=== PATIENT | male | born 1955 | race Caucasian/White ===

== ENCOUNTER 2019-03-19 14:31 | Inpatient (IN) | payer OTHER ==
[~2019-03-19] VITALS: Ht 190.5 cm; Wt 109.6 kg
[2019-03-19] MEDS ORDERED: METF500 PO (14:58)
[2019-03-19 17:14] LABS: Alanine Aminotransfer (ALT/SGP 39 U/L (12-78); Albumin, Blood 3.6 g/dL (3.4-5.0); Alk Phos 70 U/L (50-136); Anion Gap 6 mmol/L (6-16); Aspartate Aminotrans (AST/SGOT 27 U/L (12-37); Bilirubin, Total 0.4 mg/dL (0.1-1.0); Blood Urea Nitrogen 17 mg/dL (8-24); Bun/Creatinine Ratio 19.4 (12.0-20.0); CO2, Blood 25 mmol/L (21-32); Calcium, Blood 8.5 mg/dL (8.5-10.1); Chloride, Blood 106 mmol/L (98-108); Creatinine, Blood 0.88 mg/dL (0.60-1.20); Globulin, Blood 3.5 g/dL (2.2-4.0); Glomerular Filtration Rate >60 (60-); Glucose, Blood 133 mg/dL (70-99); Potassium, Blood 4.1 mmol/L (3.5-5.5); Sodium, Blood 137 mmol/L (136-145); Total Protein, Blood 7.1 g/dL (6.4-8.2); Troponin I 0.209 ng/mL (0.000-0.040)
[2019-03-19 17:20] LABS: BASOPHILS ABSOLUTE AUTO 0.07 K/mm3 (0.00-0.23); BASOPHILS PERCENT AUTO 1 % (0-2); EOSINOPHILS ABSOLUTE AUTO 0.33 K/mm3 (0.00-0.68); EOSINOPHILS PERCENT AUTO 3 % (0-6); Hematocrit 45.1 % (37.0-53.0); Hemoglobin 15.4 g/dL (13.5-17.5); IMMATURE GRAN ABSOLUTE AUTO 0.07 K/mm3 (0.00-0.10); IMMATURE GRAN PERCENT AUTO 1 % (0-1); LYMPHOCYTES PERCENT AUTO 34 % (21-46); MONOCYTES ABSOLUTE AUTO 0.75 K/mm3 (0.16-1.47); MONOCYTES PERCENT AUTO 6 % (4-13); Mean Corpuscular HGB 30.7 pg (26.0-34.0); Mean Corpuscular HGB Conc 34.1 g/dL (31.5-36.5); Mean Corpuscular Volume 90 fL (80-100); Mean Platelet Volume 10.6 fL (9.1-12.4); NEUTROPHILS ABSOLUTE AUTO 7.46 K/mm3 (1.96-9.15); NEUTROPHILS PERCENT AUTO 57 % (41-73); Platelet Count 209 K/mm3 (150-400); RDW Coefficient Variation 11.9 % (11.7-14.2); Red Blood Cell Count 5.01 M/mm3 (4.30-5.90); White Blood Cell Count 13.18 K/mm3 (4.00-11.30)
[2019-03-19] MEDS ORDERED: Amaryl1 MG PO (17:25)
--- NOTE | 2019-03-20 04:53 | NUR ---
SHIFT SUMMARY PT ARRIVED TO UNIT AT APPROXIMATELY 2009. PT ALERT AND ORIENTED. VS STABLE. HR NSR. BP STABLE. PT DENIES ANY CP/PRESSURE. HEPARIN GTT INFUSING PER ORDERS. PT NPO SINCE MIDNIGHT. PT AWAITING CARDIOLOGY CONSULT. PT INDEPENDENT IN THE ROOM. WILL CONTINUE TO MONITOR AND REPORT TO ONCOMING RN. CALL LIGHT IN [facility].
[2019-03-20 07:53] LABS: BASOPHILS PERCENT AUTO 1 % (0-2); EOSINOPHILS ABSOLUTE AUTO 0.59 K/mm3 (0.00-0.68); EOSINOPHILS PERCENT AUTO 5 % (0-6); Hematocrit 43.1 % (37.0-53.0); Hemoglobin 14.8 g/dL (13.5-17.5); IMMATURE GRAN ABSOLUTE AUTO 0.05 K/mm3 (0.00-0.10); IMMATURE GRAN PERCENT AUTO 0 % (0-1); LYMPHOCYTES ABSOLUTE AUTO 5.94 K/mm3 (0.84-5.20); LYMPHOCYTES PERCENT AUTO 52 % (21-46); MONOCYTES ABSOLUTE AUTO 0.86 K/mm3 (0.16-1.47); MONOCYTES PERCENT AUTO 8 % (4-13); Mean Corpuscular HGB 31.2 pg (26.0-34.0); Mean Corpuscular HGB Conc 34.3 g/dL (31.5-36.5); Mean Corpuscular Volume 91 fL (80-100); Mean Platelet Volume 10.7 fL (9.1-12.4); NEUTROPHILS ABSOLUTE AUTO 3.86 K/mm3 (1.96-9.15); NEUTROPHILS PERCENT AUTO 34 % (41-73); Platelet Count 199 K/mm3 (150-400); RDW Coefficient Variation 12.1 % (11.7-14.2); Red Blood Cell Count 4.75 M/mm3 (4.30-5.90)
[2019-03-20 08:18] LABS: Anion Gap 6 mmol/L (6-16); Blood Urea Nitrogen 17 mg/dL (8-24); Bun/Creatinine Ratio 22.7 (12.0-20.0); CHOL/HDL RATIO 4.8; CO2, Blood 24 mmol/L (21-32); Calcium, Blood 8.7 mg/dL (8.5-10.1); Chloride, Blood 107 mmol/L (98-108); Cholesterol 212 mg/dL (50-200); Creatinine, Blood 0.75 mg/dL (0.60-1.20); Glomerular Filtration Rate >60 (60-); Glucose, Blood 174 mg/dL (70-99); HDL Cholesterol 44 mg/dL (>39); LDL/HDL RATIO 2.6; Low Density Lipoprotein Chol 115 mg/dL (0-110); Sodium, Blood 137 mmol/L (136-145); Triglycerides 264 mg/dL (30-160); Very Low Density Lipoprot Chol 52 mg/dL (6-32)
--- NOTE | 2019-03-20 09:12 | NUR ---
RECEIVED PERMISSION FROM THE PATIENT TO PROVIDE CARE.
--- NOTE | 2019-03-20 10:00 | NUR ---
SPOKE WITH PATIENTS DAUGHTER ON THE PHONE. UPDATED ON PATIENTS STATUS AND PLANS FOR CARDIAC CATHETERIZATION.
--- NOTE | 2019-03-20 12:03 | NUR ---
PATIENT RESTLESS, REQUESTED TO GO FOR A WALK AROUND THE UNIT. PT SHOWN AROUND THE UNIT AND REMINDED OF NPO STATUS. GAIT WAS STEADY. NO COMPLAINTS OF SHOB OR CP UPON MOVEMENT. TELEMETRY MONITORED HE WALKED, PULSE ELEVATED TO THE MID 60'S.
--- NOTE | 2019-03-20 12:24 | NUR ---
PATIENT TOLERATED WALKING WITH NO COMLAINTS.
--- NOTE | 2019-03-20 14:09 | NUR ---
Spiritual care visit conducted. Patient is lying in bed and alert. Patient's spouse, Shannon, is bedside. Patient openly shares about his medical issues and his frustration with the long wait for surgery. Patient tells me his life story which includes his family history, his career history, his spiritual journey and his past struggles with addiction. 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 I listen empathically, reinforce helpful attitudes and practices, normalize patient's experience and provide companionship, pastoral children counselor and presurgical prayer. Patient responds well and show signs of reduced stress. I will continue to remain available to patient and family.
--- NOTE | 2019-03-20 15:59 | NUR ---
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
--- NOTE | 2019-03-20 18:05 | NUR ---
This student nurse has permission to access patient information.
--- NOTE | 2019-03-20 18:08 | NUR ---
pt returned to room after have an angio, he recieved one stent to mid lad, he is awake a/ox3, feels good, tr band site is clear, no numbness or tingling to fingers, v.s. stable, glucose 129, no insulin coverage needed, call light in reach, at bedside, eating dinner.
--- NOTE | 2019-03-20 18:57 | NUR ---
No signs of bleeding, bruising, or swelling surrounding the TR band. Patient denies associated pain or loss of sensation. Vitals signs are stable.
--- NOTE | 2019-03-20 20:24 | NUR ---
ASSUMED CARE ASSUMED CARE OF PT AT 1900, PATIENT AWAKE AND ALERT LYING IN BED IN NO SIGNS OF DISTRESS, TR BAND IN PLACE RIGHT WRIST. SURG SITE IS INTACT, MILD SWELLING AT EDGES OF TR BAND TO WHICH PATIENT REPORTS TENDER WHEN TOUCHED, BUT NO REDNESS. APPEARS SWELLING/TENDERNESS MAY BE CAUSED BY THE TIGHT TR BAND. REMOVED 1 CC AIR FROM TR BAND, PATIENT STATES RELIEF. WILL CONTINUE TO ASSESS AND MONITOR, AND WILL CONTINUE REMOVING AIR FROM TR BAND PER UNIT PROTOCOL.
--- NOTE | 2019-03-20 22:50 | NUR ---
AIR REMOVED FROM TR BAND REMOVED THE FINAL 2 ML OF AIR FROM PATIENT'S TR BAND. SITE CONTINUES IT HAS AT EACH ASSESSMENT: MILD SWELLING AT EDGES OF TR BAND, NO NEW REDNESS, NO PAIN OUT OF PROPORTION. CAP REFILL < 3 SEC WITH FULL SENSATION PER PATIENT TO ALL FINGERS RIGHT HAND. 02 SATURATION ABOVE 95% PERIPHERAL TO SURG SITE THROUGHOUT ALL ASSESSMENTS. WILL CONTINUE TO MONITOR
--- NOTE | 2019-03-20 23:50 | NUR ---
TR BAND REMOVED. ASSESSMENT CONTINUES WNL. NO NEW PAIN, NO NEW REDNESS. CAP REFILL AND SENSATION TO PERIPHERY REMAIN INTACT. SATURATION ABOVE 95%. PATIENT REPORTS FINGER MOVEMENT IS NORMAL. SITE COVERED WITH CLEAR TEGADERM, ARM BAND IN PLACE. PATIENT ADVISED THAT ARM BAND AND MOVEMENT PRECAUTIONS WILL REMAIN IN PLACE THROUGH DISCHARGE.
--- NOTE | 2019-03-21 07:00 | NUR ---
SHIFT SUMMARY ALL VITAL SIGNS STABLE T/O SHIFT. RADIAL ACCESS SITE TO RIGHT WRIST INTACT AND COVERED WITH CLEAR DRESSING. NO NEW BLEEDING, REDNESS, SWELLING, PAIN. SENSATION AND PERFUSION INTACT TO PERIPHERY. PATIENT HAS BEEN COMPLIANT WITH ARM BOARD WHICH IS STILL IN PLACE; PATIENT ADVISED IN ITS USE. PATIENT IS LOOKING FORWARD TO BEING ABLE TO GO HOME. BED IS LOCKED AND LOW, CALL LIGHT W/IN REACH.
--- NOTE | 2019-03-21 07:30 | NUR ---
PT SITTING UP IN BED, AMBULATING IN ROOM AD DIANE, DENIES ANY COMPLAINTS OF PAIN, A/OX3, PLEASANT AND COOPERATIVE WITH CARE, FOLLOWS COMMANDS WELL, LUNGS ARE CLEAR T/O, R/A, RESP EVEN AND UNLABORED, NO COUGH NOTED, HRR, TELE IN PLACE RUNNING SB IN THE HIGH 50'S, VERY TRACE EDEMA NOTED, PPP+2, CAP REFILL <3SEC, VS STABLE, AFEBRILE, IV SITES ARE CLEAR AND PATENT, BTX4, ABD ROUND SOFT NONTENDER, VOIDS WITHOUT DIFF, SKIN C/W/D, MAEW, TR BAND SITE WITH ARM BOARD IN PLACE, WILL BE GOING HOME TODAY, EDUCATION ON TR BAND CARE GIVEN, DIETARY CONSULT PLACED FOR ADA AND CARDIAC DIET. CALL LIGHT IN REACH.
[2019-03-21 08:47] LABS: Hematocrit 43.3 % (37.0-53.0); Hemoglobin 14.6 g/dL (13.5-17.5); Mean Corpuscular HGB 30.6 pg (26.0-34.0); Mean Corpuscular HGB Conc 33.7 g/dL (31.5-36.5); Mean Corpuscular Volume 91 fL (80-100); Mean Platelet Volume 10.6 fL (9.1-12.4); Platelet Count 199 K/mm3 (150-400); RDW Standard Deviation 39.8 fL (35.1-46.3); Red Blood Cell Count 4.77 M/mm3 (4.30-5.90); White Blood Cell Count 9.85 K/mm3 (4.00-11.30)
[2019-03-21 09:06] LABS: Albumin, Blood 3.4 g/dL (3.4-5.0); Anion Gap 8 mmol/L (6-16); Blood Urea Nitrogen 17 mg/dL (8-24); Bun/Creatinine Ratio 20.5 (12.0-20.0); CO2, Blood 24 mmol/L (21-32); Calcium, Blood 8.4 mg/dL (8.5-10.1); Chloride, Blood 106 mmol/L (98-108); Creatinine, Blood 0.83 mg/dL (0.60-1.20); Glomerular Filtration Rate >60 (60-); Glucose, Blood 249 mg/dL (70-99); Phosphorus, Blood 2.5 mg/dL (2.5-4.9); Sodium, Blood 138 mmol/L (136-145)
--- NOTE | 2019-03-21 10:16 | NUR ---
pt is cleared to go home from cardiology standpoint, Dr. Goddard in to see him this am. education about care of his tr band given, dietian consult ordered for diabetic education, and heart healthy diet. Dr. Hankins in to see him. up in room ad natalya, in room with him.
[2019-03-21] MEDS ORDERED: Aspir 8181 MG PO (11:47)
[2019-03-21] MEDS ORDERED: ATOR80 PO ×2 (11:47→11:53)
[2019-03-21] MEDS ORDERED: METO25ER PO (11:51)
[2019-03-21] MEDS ORDERED: NITR.4SL SL (11:52)
[2019-03-21] MEDS ORDERED: LISI5 PO (11:52)
[2019-03-21] MEDS ORDERED: CLOP75 PO (11:58)
--- NOTE | 2019-03-21 12:15 | NUR ---
PT HAS BEEN DISCHARGED TO HOME, REMOVED IVS INTACT, WENT OVER DISCHARGE INSTRUCTIONS WITH HIM AND HIS , THEY VERBALIZE UNDERSTANDING. NEW MEDS CALLED INTO [facility], AND FAXED TO HIS PHARMACY IN [facility]. HE RECIEVED EDUCATION ON HIS DIET FOR ADA AND CARDIAC DIET. HE WILL BE TAKEN TO CAR VIA WHEELCHAIR WITH [employer] IN ATTENDENCE.
--- NOTE | 2019-03-21 12:30 | NUR ---
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
== END 2019-03-21 12:36 | disposition home or self-care (01) | DRG 247 ==
LOC: ER 14:31 → PCU 19:02
PROVIDERS: Emergency Medicine; Internal Medicine; Nurse Practitioner Acute Care; ADMIT Internal Medicine
PROC: 027034Z Dilation of Coronary Artery, One Artery with Drug-eluting Intraluminal Device, Percutaneous Approach (ICD-10-PCS; principal; 2019-03-20)
PROC: B240ZZ3 Ultrasonography of Single Coronary Artery, Intravascular (ICD-10-PCS; 2019-03-20)
PROC: B2111ZZ Fluoroscopy of Multiple Coronary Arteries using Low Osmolar Contrast (ICD-10-PCS; 2019-03-20)
DX: I21.4 Non-ST elevation (NSTEMI) myocardial infarction (principal); E11.9 Type 2 diabetes mellitus without complications; E78.1 Pure hyperglyceridemia; E66.9 Obesity, unspecified; Z79.84 Long term (current) use of oral hypoglycemic drugs; I10 Essential (primary) hypertension; M16.9 Osteoarthritis of hip, unspecified; Z90.5 Acquired absence of kidney; Z68.30 Body mass index [BMI] 30.0-30.9, adult; I25.10 Atherosclerotic heart disease of native coronary artery without angina pectoris; Z87.891 Personal history of nicotine dependence
CPT/HCPCS: 36415; 71045; 80048; 80053; 80061; 80069; 82947; 84484; 85025; 85027; 85347; 85730; 90686; 92978; 93005; 93010; 93306; 93454; 99152; 99153; 99285-25; C1725; C1753; C1769; C1874; C1887; C1894; C9600; G0008; J1644; J2250; J3010; J7030; Q9967